=== PATIENT | female | born 1995 | race Caucasian/White ===

== ENCOUNTER 2018-12-24 15:46 | Emergency (ER) | payer BC ==
[2018-12-24 16:07] VITALS: BP 118/77
[2018-12-24] MEDS ORDERED: Ondansetron ODT TAB* 4 MG PO ONE (17:09)
--- NOTE | 2018-12-24 17:21 | UC ---
UC General HPI - HPI Summary HPI Summary: 23-year-old woman comes in with a chief complaint of abdominal pain nausea vomiting. Earlier today she felt nauseous and started vomiting having upper abdominal pain. Later she started developing lower abdominal cramping. No complaint of any blood in the vomit. No diarrhea. The pain is mild this time. No complaint of any dysuria. Pain initially as epigastric and then it was down to bilateral lower abdominal cramping. Patient had a similar episode 2 days ago and also 4 days ago. Patient reports she has been treated in the past for anxiety and she noticed that she does have anxiety. For several months she's been having nausea every time she tries to eat in the morning. She stopped eating breakfast and has gotten rid of that problem. No abdominal surgeries. Denies any abnormal vaginal discharge or any concern of STI. - History of Current Complaint Chief Complaint: UCAbdominalPain Stated Complaint: STOMACH ISSUES Time Seen by Provider: 12/24/18 16:30 Hx Last Menstrual Period: last week Pain Intensity: 3 - Allergy/Home Medications Allergies/Adverse Reactions: Allergies Allergy/AdvReac Type Severity Reaction Status Date / Time Penicillins Allergy Rash Verified 12/24/18 16:00 Home Medications: Home Medications Iud 12/24/18 [History] Multivitamin [Multivitamins] 1 cap PO DAILY 12/24/18 [History Confirmed 12/24/18 ] lamoTRIgine [Lamictal] 200 mg PO DAILY 12/24/18 [History Confirmed 12/24/18] PMH/Surg Hx/FS Hx/Imm Hx Previously Healthy: Yes Psychological History: Anxiety - Surgical History Surgical History: Yes Surgery Procedure, Year, and Place: Nasal surgery at 17 y/o. [employer] teeth - Family History Known Family History: Positive: Non-Contributory - Social History Alcohol Use: Occasionally Substance Use Type: None Smoking Status (MU): Never Smoked Tobacco Review of Systems All Other Systems Reviewed And Are Negative: Yes Constitutional: Positive: Other - SEE HPI Skin: Positive: Negative Eyes: Positive: Negative ENT: Positive: Negative Respiratory: Positive: Negative Cardiovascular: Positive: Negative Gastrointestinal: Positive: Abdominal Pain, Vomiting, Nausea Genitourinary: Positive: Negative Motor: Positive: Negative Neurovascular: Positive: Negative Musculoskeletal: Positive: Negative Neurological: Positive: Negative Psychological: Positive: Anxious Is Patient Immunocompromised?: No Physical Exam Triage Information Reviewed: Yes Appearance: Well-Appearing, No Pain Distress, Well-Nourished Vital Signs: Initial Vital Signs Temp 98.5 F 12/24/18 16:02 Pulse 90 12/24/18 16:02 Resp 18 12/24/18 16:02 BP 118/77 12/24/18 16:02 Pulse Ox 100 12/24/18 16:02 Vital Signs Reviewed: Yes Eye Exam: Normal Eyes: Positive: Conjunctiva Clear Neck: Positive: Supple Respiratory: Positive: Lungs clear, Normal breath sounds, No respiratory distress Cardiovascular: Positive: RRR Abdomen Description: Positive: Other: - Patient is mild tenderness to palpation in the epigastrium and also the right lower quadrant suprapubic and left lower quadrant portions of the abdomen. No rebound. Bowel Sounds: Positive: Present Musculoskeletal: Positive: Strength Intact, ROM Intact Neurological: Positive: Alert, Muscle Tone Normal Psychological: Positive: Age Appropriate Behavior Skin Exam: Normal Course/Dx - Course Course Of Treatment: Patient has mild tenderness to palpation on exam today in the epigastrium and bilateral lower abdomen. The tenderness is not focal over the right lower quadrant where the appendix is or the right upper quadrant where the gallbladder is. Given the patient's history of nausea with eating in the morning I'm concerned about a gastric cause of the vomiting. For that we'll treat with omeprazole 20 mg by mouth twice a day for 15 days. Also prescription for Zofran to be used as needed. Patient reports that she's had a lot of anxiety and that could be the cause for the rest of the abdominal discomfort. We also discussed the possibility of a viral cause there has been no diarrhea. Patient had trace leukocytes on her urine but no UTI symptoms. We discussed this and the plan is I wrote a prescription for Bactrim DS by mouth twice a day for 5 days to be used if she develops UTI symptoms or if the urine culture comes back positive. For the anxiety patient will be following up with [facility]. Patient denied any suicidal ideation at this time. I let her know that if things got worse for her abdominal pain or anxiety she should go the emergency room. - Diagnoses Provider Diagnosis: Epigastric pain, Lower abdominal pain, Nausea & vomiting, Pyuria, Anxiety Discharge ED - Sign-Out/Discharge Documenting (check all that apply): Patient Departure All imaging exams completed and their final reports reviewed: No Studies - Discharge Plan Condition: Stable Disposition: HOME Prescriptions: Omeprazole 20 mg PO BID #30 capsule. Ondansetron ODT TAB* [Zofran 4 MG Odt TAB*] 4 mg PO Q6H PRN #15 tab.odt PRN Reason: Nausea Sulfamethox/Trimethoprim DS* [Bactrim DS 800/160 TAB*] 1 tab PO BID #10 tab Patient Education Materials: Acute Abdominal Pain (ED), Anxiety (ED) Referrals: [facility] [Outside] [facility] [Outside] Additional Instructions: FOLLOW UP WITH YOUR DOCTOR. GO TO THE EMERGENCY DEPARTMENT IF YOUR CONDITION WORSENS; PAIN, FEVER, DEHYDRATION, YOU FEEL ILL OR ANY QUESTIONS OR CONCERNS. - Billing Disposition and Condition Condition: STABLE Disposition: Home
== END 2018-12-24 17:30 | disposition home or self-care (01) ==
LOC: UCEAST 15:46
DX: R10.13 Epigastric pain (principal); R10.31 Right lower quadrant pain; R10.32 Left lower quadrant pain; R82.81 Pyuria; R11.2 Nausea with vomiting, unspecified; F41.9 Anxiety disorder, unspecified; Z88.0 Allergy status to penicillin; Z79.899 Other long term (current) drug therapy
CPT/HCPCS: 81003; 84702; 87086; 99202; A9270-GY; G0463